=== PATIENT | female | born 2000 | race Caucasian/White ===

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

== ENCOUNTER → 2019-03-31 | Outpatient (CLI) | payer OTHER, BC ==
--- NOTE | 2019-03-31 12:14 | US ---
EXAMINATION TYPE: US pelvis complete transvag DATE OF EXAM: 03/31/2019 COMPARISON: NONE CLINICAL HISTORY: 18-year-old female R10.2 pelvic pain. TECHNIQUE: Transabdominal sonographic images of the pelvis were acquired. Transvaginal sonographic i mages were medically necessary to better assess the following anatomy: Uterus and ovaries Date of LMP: 03/09/2019 FINDINGS: EXAM MEASUREMENTS: Uterus: 6.3 x 2.9 x 3.4 cm Endometrial Stripe: 0.3 cm Right Ovary: 2.3 x 1.6 x 1.7 cm Left Ovary: 2.1 x 1.7 x 1.8 cm 1. Uterus: Anteverted wnl 2. Endometrium: wnl 3. Right Ovary: Follicular change, wnl 4. Left Ovary: Follicular change, wnl 5. Bilateral Adnexa: wnl 6. Posterior cul-de-sac: wnl IMPRESSION: Normal follicular change in the ovaries. Thin endometrial stripe at 3 mm. No pelvic free fluid.
== END | disposition home or self-care (01) ==
LOC: RADUSMAIN 10:00
PROVIDERS: ATTEND Obstetrics & Gynecology
DX: R10.2 Pelvic and perineal pain (principal)
CPT/HCPCS: 76830; 76856

== ENCOUNTER 2020-03-18 07:18 | Emergency (ER) | payer OTHER, BC ==
[2020-03-18 07:32] VITALS: BP 138/89; PULSE 83; RESP 16; TEMP 98.9
[2020-03-18] MEDS ORDERED: diphenhydrAMINE 50 MG/ML 1 ML VIAL IVP STA (07:36)
[2020-03-18] MEDS ORDERED: FAMOTIDINE 20 MG/2 ML VIAL IV STA (07:36)
[2020-03-18] MEDS ORDERED: methylPREDNISolone SOD SUCCI 125 MG/2 ML VIAL IV STA (07:36)
--- NOTE | 2020-03-18 07:47 | ED ---
Allergic Reaction HPI - General Chief complaint: Allergic Reaction Stated complaint: Allergic Reaction Time Seen by Provider: 03/18/20 07:33 Source: patient, RN notes reviewed Mode of arrival: ambulatory Limitations: no limitations - History of Present Illness Initial Comments: Patient is a 19-year-old female presents to emergency department complaining of ALLERGIC reaction. She noted that she just got her wisdom teeth out a little over a week ago. And noted that her sutures fell out the anterior aspect of her neck became red itchy and had a burning-like sensation. She did note that in the past she did have ankle surgery and had a similar reaction on her leg. She does have a follow-up with her radiator mechanic. She'll that she tried taking Jojo dryl last night to help sleep but it did not do much. She was in no apparent distress or pain, and had no other issues or complaints. She denied any chest pain shortness of breath difficulty swallowing difficulty talking nausea vomiting diarrhea constipation fever fatigue chills. - Related Data Previous Rx's Medication Instructions Recorded predniSONE 50 mg PO DAILY #5 tab 03/18/20 Allergies Allergy/AdvReac Type Severity Reaction Status Date / Time latex Allergy Rash/Hives Verified 03/18/20 07:32 Penicillins Allergy Rash/Hives Verified 03/18/20 07:32 Review of Systems ROS Statement: Those systems with pertinent positive or pertinent negative responses have been documented in the HPI. ROS Other: All systems not noted in ROS Statement are negative. Past Medical History Past Medical History: No Reported History History of Any Multi-Drug Resistant Organisms: None Reported Past Surgical History: Orthopedic Surgery Past Psychological History: No Psychological Hx Reported Smoking Status: Never smoker Past Alcohol Use History: None Reported Past Drug Use History: None Reported General Exam Limitations: no limitations General appearance: alert, in no apparent distress Head exam: Present: atraumatic, normocephalic, normal inspection Eye exam: Present: normal appearance, PERRL, EOMI. Absent: scleral icterus, conjunctival injection, periorbital swelling ENT exam: Present: normal exam, mucous membranes moist Neck exam: Present: normal inspection. Absent: tenderness, meningismus, lymphadenopathy Respiratory exam: Present: normal lung sounds bilaterally. Absent: respiratory distress, wheezes, rales, rhonchi, stridor Cardiovascular Exam: Present: regular rate, normal rhythm, normal heart sounds. Absent: systolic murmur, diastolic murmur, rubs, gallop, clicks GI/Abdominal exam: Present: soft, normal bowel sounds. Absent: distended, tenderness, guarding, rebound, rigid Extremities exam: Present: normal inspection, full ROM, normal capillary refill. Absent: tenderness, pedal edema, joint swelling, calf tenderness Neurological exam: Present: alert, oriented X3, CN II-XII intact Psychiatric exam: Present: normal affect, normal mood Skin exam: Present: warm, dry, intact, normal color, urticaria (Anterior aspect of the neck with ill-defined margins, blotchy, warm to the touch). Absent: rash Course Vital Signs 03/18/20 07:28 Temperature 98.9 F Pulse Rate 83 Respiratory 16 Rate Blood Pressure 138/89 O2 Sat by Pulse 100 Oximetry Medical Decision Making - Medical Decision Making 19 oh female complaining of ALLERGIC reaction status post wisdom teeth removal. Patient states similar reaction after ankle surgery Ordered Benadryl, methylprednisone, Pepcid. Case discussed with Dr. Mac, it was decided the patient to discharge home. Disposition Clinical Impression: Urticaria, Allergic reaction Disposition: HOME SELF-CARE Condition: Stable Instructions (If sedation given, give patient instructions): Urticaria (ED), General Allergic Reaction (ED) Additional Instructions: Please return to the Emergency Department if symptoms worsen or any other concerns. Take 1-2 tablets of Benadryl every 8 hours. Follow-up with radiator mechanic. Referral given for senior quality assurance analyst. Per patient's request Take steroids as prescribed. Is patient prescribed a controlled substance at d/c from ED?: No Referrals: None,Stated [Primary Care Provider] - 1-2 days Porsha Cee MD [STAFF PHYSICIAN] - 1-2 days Time of Disposition: 07:56
== END 2020-03-18 08:35 | disposition home or self-care (01) ==
LOC: EC 07:18
DX: L50.0 Allergic urticaria (principal); T78.49XA Other allergy, initial encounter; Z88.0 Allergy status to penicillin; Z91.040 Latex allergy status
CPT/HCPCS: 99283; 96374; 96375 ×2; J1200; J2930

== ENCOUNTER 2022-12-09 09:55 | Inpatient (IN) | payer BC ==
[2022-12-09] MEDS ORDERED: METHYLERGONOVINE 0.2 MG/ML 1 ML AMP IM PRN (10:50)
[2022-12-09] MEDS ORDERED: TRANEXAMIC 1,000 MG/100ML-NACL 1,000 MG in EMPTY BAG 1 BAG IV PRN (10:50)
[2022-12-09] MEDS ORDERED: TERBUTALINE 1 MG/ML VIAL SQ PRN (10:50)
[2022-12-09] MEDS ORDERED: miSOPROStoL 200 MCG TAB PO PRN (10:50)
[2022-12-09] MEDS ORDERED: LIDOCAINE 0.5% (PF) 5 MG/ML (50 ML SDV) SQ PRN (10:50)
[2022-12-09] MEDS ORDERED: CARBOPROST TROMETHAMINE 250 MCG/ML 1 ML AMP IM PRN (10:50)
[2022-12-09] MEDS ORDERED: OXYTOCIN 10 UNIT/ML 1 ML VIAL IM PRN (10:50)
[2022-12-09] MEDS ORDERED: OXYTOCIN 30 UNITS/500 ML NS 30 UNIT in SALINE 1 500ML.BAG IV SCH (11:00)
[2022-12-09 11:28] LABS: Basophils % (A) 0 %; Eosinophils # (A) 0.1 k/uL (0-0.7); Eosinophils % (A) 1 %; HCT 36.4 % (34.0-46.0); HGB 12.6 gm/dL (11.4-16.0); Lymphocytes # (A) 2.1 k/uL (1.0-4.8); Lymphocytes % (A) 23 %; MCH 29.2 pg (25.0-35.0); MCHC 34.6 g/dL (31.0-37.0); MCV 84.5 fL (80.0-100.0); Mean Platelet Volume 9.5; Monocytes # (A) 0.4 k/uL (0-1.0); Monocytes % (A) 5 %; Neutrophils # (A) 6.4 k/uL (1.3-7.7); Neutrophils % (A) 71 %; Platelet Count 213 k/uL (150-450); RBC 4.31 m/uL (3.80-5.40); WBC 9.1 k/uL (3.8-10.6)
[2022-12-09] MEDS: CLINDAMYCIN 900 MG in DEXTROSE 5% IN WATER 50 ML IVPB SCH ×4 (11:59→20:00)
[2022-12-09] MEDS: LACTATED RINGERS 1,000 ML IV SCH ×2 (11:59→19:09)
--- NOTE | 2022-12-09 17:49 | P.HPOB ---
History of Present Illness H&P Date: 12/09/22 Chief Complaint: SROM 22 year old presents at 39 weeks 4 days with spontaneous rupture of membranes at 8 am today. She came to the hospital and was found to be 2/80/-2 an d not meera. Pt is GBS +. She will be admitted for IV antibiotics and pitocin augmentation with expected vaginal delivery. Review of Systems All systems: negative Constitutional: Denies chills, Denies fever Eyes: denies blurred vision, denies pain Ears, nose, mouth and throat: Denies headache, Denies sore throat Cardiovascular: Denies chest pain, Denies shortness of breath Respiratory: Denies cough Gastrointestinal: Denies abdominal pain, Denies diarrhea, Denies nausea, Denies vomiting Genitourinary: Denies dysuria, Denies hematuria Musculoskeletal: Denies myalgias Integumentary: Denies pruritus, Denies rash Neurological: Denies numbness, Denies weakness Psychiatric: Denies anxiety, Denies depression Endocrine: Denies fatigue, Denies weight change Past Medical History Past Medical History: No Reported History History of Any Multi-Drug Resistant Organisms: None Reported Past Surgical History: Orthopedic Surgery Additional Past Surgical History / Comment(s): LEFT ANKLE SURGERY Past Psychological History: No Psychological Hx Reported Smoking Status: Never smoker Past Alcohol Use History: None Reported Past Drug Use History: None Reported - Past Family History Father History Unknown: Yes Additional Family Medical History / Comment(s): DAD HAS HYPERCARDIOMYATHIA Medications and Allergies Home Medications Medication Instructions Recorded Confirmed Type Ferrous Sulfate [Iron] 325 mg PO DAILY 12/09/22 12/09/22 History Vit No.179/Iron/Folic 1 each PO DAILY 12/09/22 12/09/22 History [ Tablet] Allergies Allergy/AdvReac Type Severity Reaction Status Date / Time latex Allergy Rash/Hives Verified 12/09/22 10:21 Penicillins Allergy Rash/Hives Verified 12/09/22 10:21 Exam Osteopathic Statement: *. No significant issues noted on an osteopathic structural exam other than those noted in the History and Physical/Consult. Vital Signs Temp Pulse Resp BP Pulse Ox 12/09/22 11:40 98.6 F 86 16 134/83 98 12/09/22 11:31 98.6 F 86 16 134/83 98 12/09/22 11:22 98.6 F 86 16 134/83 98 Intake and Output 12/09/22 12/09/22 12/09/22 06:59 14:59 22:59 Other: # Voids 1 Weight 74.843 kg HEart: RRR Lung: CTAB Abdomen: soft, nontender Extremeties: neg darron's Results Result Diagrams: 12/09/22 11:15 Assessment and Plan (1) GBS carrier Current Visit: Yes Status: Acute Code(s): Z22.330 - CARRIER OF GROUP B STREPTOCOCCUS SNOMED Code(s): 7171040500984 (2) Spontaneous rupture of amniotic membranes Current Visit: Yes Status: Acute Code(s): [id number] - SNOMED Code(s): 445960578 (3) 39 weeks gestation of Current Visit: Yes Status: Acute Code(s): Z3A.39 - 39 WEEKS GESTATION OF SNOMED Code(s): 37521057 Plan: 1. admit to [facility] 2. IV antibiotics for GBS PPX 3. pitocin augmentation 4. anticipate normal vaginal delivery
[2022-12-09] MEDS ORDERED: ROPIVACAINE 5 MG/ML 30 ML VIAL ONE (19:51)
[2022-12-09] MEDS ORDERED: SODIUM CHLORIDE 0.9% 250 ML BAG ONE (19:51)
[2022-12-09] MEDS ORDERED: fentaNYL (PF) 50 MCG/ML 5 ML AMP ONE (19:51)
[2022-12-10] MEDS: LACTATED RINGERS 1,000 ML IV SCH ×3 (03:00→18:25)
[2022-12-10] MEDS: CLINDAMYCIN 900 MG in DEXTROSE 5% IN WATER 50 ML IVPB SCH ×2 (04:00)
[2022-12-10] MEDS ORDERED: CITRIC ACID-SODIUM CITRATE 15 ML CUP PO ONE (04:09)
[2022-12-10] MEDS ORDERED: GENTAMICIN 300 MG in SODIUM CHLORIDE 0.9% 100 ML IVPB ONE (04:30)
[2022-12-10] MEDS ORDERED: SIMETHICONE 80 MG CHEWABLE PO PRN (05:20)
[2022-12-10] MEDS ORDERED: ZOLPIDEM 5 MG TAB PO PRN (05:20)
[2022-12-10] MEDS ORDERED: diphenhydrAMINE 50 MG/ML 1 ML VIAL IVP PRN ×2 (05:20)
[2022-12-10] MEDS ORDERED: NALOXONE 0.4 MG/ML 1 ML VIAL IV PRN (05:20)
[2022-12-10] MEDS ORDERED: ONDANSETRON 4 MG/2 ML VIAL IVP PRN (05:20)
[2022-12-10] MEDS ORDERED: diphenhydrAMINE 25 MG CAP PO PRN (05:20)
[2022-12-10] MEDS ORDERED: diphenhydrAMINE 50 MG CAP PO PRN (05:20)
[2022-12-10] MEDS ORDERED: METOCLOPRAMIDE 5 MG/ML 2 ML VIAL IVP PRN (05:20)
[2022-12-10] MEDS ORDERED: LANOLIN CREAM 5 GM TUBE TOPICAL PRN (05:20)
--- NOTE | 2022-12-10 05:20 | P.OP ---
Date of Procedure: 12/10/22 Preoperative Diagnosis: 1. at 39 weeks 5 days 2. SROM 3. latent phase arrest-pitocin augmentation after SROM and cervical dilation <6 for over 18 hours after membrane rupture Postoperative Diagnosis: same plus meconium stained fluid Procedure(s) Performed: Primary low transverse Anesthesia: epidural Surgeon: Sugey Salazar Dope Dry House Operator #1: Mary Zapata Estimated Blood Loss (ml): 1,500 IV fluids (ml): 1,000 Urine output (ml): 200 Pathology: none sent Condition: stable Disposition: floor Indications for Procedure: 22-year-old presented at 39 weeks and 4 days with spontaneous rupture of membranes. She presented soon after that and was 2 cm dilated as Pitocin augmentation was started. Antibiotics were also started for GBS prophylaxis. When she was uncomfortable she did get an epidural. Her cervix became about 5 cm dilated and did not progress after this for over 10 hours. He performed the [facility]'s [facility] and discussed options with the patient. I advised section to expedite delivery and the patient agreed to the plan. All risks, benefits and alternatives were discussed with the patient and her family. Operative Findings: Viable male, Apgars at 1 minute was 4, 5 minutes was 8, 10 minutes was 9. Weight 7 lbs. 13 oz. normal uterus, tubes, ovaries. Description of Procedure: Patient was taken to the operating room where spinal anesthesia was found be adequate. She was prepped and draped in normal sterile fashion in dorsal supine position with a leftward tilt. Pfannenstiel skin incision was made the scalpel and carried through to the underlying layer of fascia with the scalpel. Fascia was incised in midline and carried bilaterally with the Upton scissors. The superior aspect of the fascial incision was grasped with Kwaku clamps elevated and the underlying rectus muscles dissected off with the Upton's. Attention was then turned to inferior aspect of same incision which in a similar fashion was grasped tented up and the underlying rectus muscles dissected off with the Upton's. The rectus muscles were the midline and the peritoneum was identified tented up and entered sharply with the scalpel. The incision was extended superiorly and inferiorly with good visualization of the bladder. The bladder blade was inserted and the vesicouterine peritoneum was incised the Metzenbaums then carried bilaterally and bladder flap created digitally. A low transverse incision was then made on the uterus with the scalpel. This was carried bilaterally and digital manner. Infant's head delivered atraumatically, nose and mouth bulb suctioned, cord clamped and cut, handed off to waiting nurses. Apgars 4 at one minute, 8 at 5 minutes and 9 at 10 minutes, weight 7 lbs. 13 oz. Placenta delivered manually, intact with three-vessel cord. The uterus is exteriorized and cleared of all clots and debris. There was some uterine atony noted so extra Pitocin was given through the IV. The uterine incision was closed with 0 Vicryl in a running locked fashion. Second layer of the same sutures used in imbricating fashion to obtain excellent hemostasis. Bladder flap was then reapproximated using 2-0 Vicryl in a running fashion. Both ovaries and tubes appeared normal. The uterus was placed back into the abdomen. The peritoneum was reapproximated using 2-0 Vicryl in a running fashion. The muscles were reapproximated using 2-0 Vicryl in interrupted fashion. The fascia was reapproximated using 0 Vicryl in a running fashion. The subcutaneous tissues closed with 3-0 Vicryl running fashion. The skin was closed ron. Patient tolerated the procedure well, sponge and instrument counts were correct times 2 and she was taken to the recovery room in stable condition.
[2022-12-10] MEDS ORDERED: LACTATED RINGERS 1,000 ML IV SCH (05:30)
[2022-12-10] MEDS ORDERED: OXYTOCIN 30 UNITS/500 ML NS 30 UNIT in SALINE 1 500ML.BAG IV SCH (05:30)
[2022-12-10] MEDS ORDERED: ONDANSETRON 4 MG/2 ML VIAL ONE (09:28)
[2022-12-10] MEDS ORDERED: DEXAMETHASONE SOD PHOSPHATE 4 MG/ML 1 ML VIAL ONE (09:28)
[2022-12-10] MEDS ORDERED: OXYTOCIN 30 UNITS/500 ML NS BAG IV ONE (09:28)
[2022-12-10] MEDS ORDERED: KETOROLAC 15 MG/ML 1 ML VIAL ONE (09:28)
[2022-12-10] MEDS ORDERED: MORPHINE SULFATE (PF) 0.3 MG/0.3 ML SYR ONE (09:28)
[2022-12-10] MEDS ORDERED: fentaNYL (PF) 50 MCG/ML 2 ML AMP ONE (09:28)
[2022-12-10] MEDS: SENNOSIDES-DOCUSATE SODIUM 1 EACH TAB PO SCH ×2 (10:32→19:49)
[2022-12-10] MEDS: ACETAMINOPHEN TAB 500 MG TAB PO SCH ×4 (10:33→22:57)
[2022-12-10] MEDS: KETOROLAC 15 MG/ML 1 ML VIAL IVP SCH ×2 (11:29→18:25)
[2022-12-10] MEDS: IBUPROFEN 600 MG TAB PO SCH ×3 (11:30→20:15)
[2022-12-11] MEDS: IBUPROFEN 600 MG TAB PO SCH ×4 (01:45→19:36)
[2022-12-11] MEDS: ACETAMINOPHEN TAB 500 MG TAB PO SCH ×4 (05:26→23:59)
[2022-12-11 07:35] LABS: Basophils % (A) 0 %; Eosinophils # (A) 0.2 k/uL (0-0.7); Eosinophils % (A) 1 %; HCT 22.8 % (34.0-46.0); Lymphocytes # (A) 2.9 k/uL (1.0-4.8); Lymphocytes % (A) 20 %; MCH 29.3 pg (25.0-35.0); MCHC 34.1 g/dL (31.0-37.0); MCV 85.8 fL (80.0-100.0); Mean Platelet Volume 9.8; Monocytes # (A) 0.6 k/uL (0-1.0); Monocytes % (A) 4 %; Neutrophils # (A) 10.7 k/uL (1.3-7.7); Neutrophils % (A) 73 %; Platelet Count 190 k/uL (150-450); RBC 2.65 m/uL (3.80-5.40); RDW 15.4 % (11.5-15.5); WBC 14.7 k/uL (3.8-10.6)
[2022-12-11 08:00] LABS: HGB 7.8 gm/dL (11.4-16.0)
[2022-12-11] MEDS: SENNOSIDES-DOCUSATE SODIUM 1 EACH TAB PO SCH ×2 (08:03→19:35)
--- NOTE | 2022-12-11 08:08 | P.PN ---
Progress Note - Text Progress Note Date: 12/11/22 Patient seen sitting upright in bed. POD #1 C/S with IRLANDA/duramorph for post-op pain control. Patient denies pain VAS 0/10 sitting and with ambulation. Complains of pruritis that has diminished over night. Denies back pain, LE parethesias, Nausea and headache. Happy with her anesthesia care. Will follow up as indicated.
--- NOTE | 2022-12-11 08:39 | P.PNOBGPC ---
Subjective - Subjective Principal diagnosis: Status post primary section postoperative day #1 Interval history: Patient is doing well. She is ambulating without difficulty. She is passing flatus. She denies any bowel movement yet. She is urinating without difficulty. Patient reports: Reports appetite normal, Reports voiding normally, Reports pain well controlled, Reports ambulating normally, Denies dizzy ambulation : doing well Objective - Vital Signs Latest vital signs: Vital Signs Temp Pulse Resp BP Pulse Ox 12/11/22 08:00 97.9 F 71 20 144/85 100 12/10/22 23:28 98.1 F 83 14 131/83 98 12/10/22 20:10 98.7 F 91 18 136/77 99 12/10/22 15:49 98.2 F 84 16 134/80 99 12/10/22 12:00 98.9 F 76 16 122/70 99 Intake and Output 12/10/22 12/11/22 12/11/22 22:59 06:59 14:59 Intake Total 360 Output Total 400 Balance -400 360 Intake: Oral 360 Output: Urine 400 Other: # Voids 1 2 1 - Exam Extremities: Present: normal. Absent: tenderness, edema Abdomen: Present: normal appearance, soft (Positive bowel sounds 4). Absent: distention, tenderness Incision: Present: normal, dry, intact. Absent: erythematous Uterus: Present: normal, firm. Absent: tenderness - Labs Labs: Abnormal Lab Results - Last 24 Hours (Table) 12/11/22 Range/Units 07:05 WBC 14.7 H (3.8-10.6) k/uL RBC 2.65 L (3.80-5.40) m/uL Hgb 7.8 L D (11.4-16.0) gm/dL Hct 22.8 L (34.0-46.0) % Neutrophils # 10.7 H (1.3-7.7) k/uL Assessment and Plan Assessment: Status post primary low transverse section postoperative day #1 Acute blood loss anemia-relatively asymptomatic Plan: We'll continue with postoperative care today. Will repeat CBC in the morning. Pediatrics has asked me not to do the circumcision yet today due to possible infection for baby.
[2022-12-12] MEDS: IBUPROFEN 600 MG TAB PO SCH ×5 (02:13→23:03)
[2022-12-12] MEDS: ACETAMINOPHEN TAB 500 MG TAB PO SCH ×4 (05:10→20:13)
--- NOTE | 2022-12-12 06:32 | P.PNOBGPC ---
Subjective - Subjective Patient reports: Reports appetite normal, Reports voiding normally, Reports pain well controlled, Reports ambulating normally : doing well Objective - Vital Signs Latest vital signs: Vital Signs Temp Pulse Resp BP Pulse Ox 12/12/22 00:00 98.3 F 74 18 135/80 99 12/11/22 15:36 98.4 F 73 20 135/86 12/11/22 08:00 97.9 F 71 20 144/85 100 Intake and Output 12/11/22 12/11/22 12/12/22 14:59 22:59 06:59 Intake Total 360 360 540 Balance 360 360 540 Intake: Oral 360 360 540 Other: # Voids 1 2 1 # Bowel Movements 1 - Exam Lungs: bilateral: normal Chest: Normal S1, Normal S2 Extremities: Present: normal Abdomen: Present: normal appearance, soft. Absent: distention, tenderness Incision: Present: normal, dry, intact Uterus: Present: normal, firm - Labs Labs: Abnormal Lab Results - Last 24 Hours (Table) 12/11/22 Range/Units 07:05 WBC 14.7 H (3.8-10.6) k/uL RBC 2.65 L (3.80-5.40) m/uL Hgb 7.8 L D (11.4-16.0) gm/dL Hct 22.8 L (34.0-46.0) % Neutrophils # 10.7 H (1.3-7.7) k/uL Assessment and Plan Assessment: Post operative day #2. Patient is resting without complaints. CBC yesterday showed a significant drop her hemoglobin from surgical loss however the patient is feeling well. Plan today is to continue routine postoperative care, repeat CBC, and began iron therapy. Most likely will discharge home tomorrow (1) Delivery by section Current Visit: Yes Status: Acute Code(s): [id number] - SNOMED Code(s): 253052112
[2022-12-12 07:24] LABS: Basophils % (A) 0 %; Eosinophils # (A) 0.2 k/uL (0-0.7); Eosinophils % (A) 2 %; HCT 21.3 % (34.0-46.0); HGB 7.1 gm/dL (11.4-16.0); Lymphocytes # (A) 1.9 k/uL (1.0-4.8); Lymphocytes % (A) 21 %; MCH 28.7 pg (25.0-35.0); MCHC 33.2 g/dL (31.0-37.0); MCV 86.3 fL (80.0-100.0); Mean Platelet Volume 11.1; Monocytes # (A) 0.5 k/uL (0-1.0); Monocytes % (A) 5 %; Neutrophils # (A) 6.2 k/uL (1.3-7.7); Neutrophils % (A) 70 %; Platelet Count 178 k/uL (150-450); RBC 2.46 m/uL (3.80-5.40); RDW 15.7 % (11.5-15.5); WBC 8.9 k/uL (3.8-10.6)
[2022-12-12] MEDS: SENNOSIDES-DOCUSATE SODIUM 1 EACH TAB PO SCH ×2 (07:54→20:12)
[2022-12-12] MEDS: FERROUS SULFATE 325 MG TAB PO SCH ×2 (07:55→17:13)
[2022-12-13] MEDS: ACETAMINOPHEN TAB 500 MG TAB PO SCH (03:29)
[2022-12-13] MEDS: IBUPROFEN 600 MG TAB PO SCH (05:18)
--- NOTE | 2022-12-13 06:19 | P.PNOBGPC ---
Subjective - Subjective Patient reports: Reports appetite normal, Reports voiding normally, Reports pain well controlled, Reports ambulating normally : doing well Objective - Vital Signs Latest vital signs: Vital Signs Temp Pulse Resp BP BP Pulse Ox 12/13/22 00:00 98.4 F 64 15 138/86 12/12/22 16:00 98.0 F 72 18 144/82 99 12/12/22 14:51 97.3 F L 74 16 154/90 98 12/12/22 13:30 155/83 12/12/22 13:28 157/93 12/12/22 13:07 98.2 F 72 16 147/88 99 12/12/22 08:00 98.3 F 77 18 143/85 99 Intake and Output 12/12/22 12/12/22 12/13/22 14:59 22:59 06:59 Intake Total 480 Balance 480 Intake: Oral 480 Other: # Voids 1 2 - Exam Lungs: bilateral: normal Chest: Normal S1, Normal S2 Extremities: Present: normal Abdomen: Present: normal appearance, soft. Absent: distention, tenderness Incision: Present: normal, dry, intact Uterus: Present: normal, firm - Labs Labs: Abnormal Lab Results - Last 24 Hours (Table) 12/12/22 Range/Units 07:12 RBC 2.46 L (3.80-5.40) m/uL Hgb 7.1 L (11.4-16.0) gm/dL Hct 21.3 L (34.0-46.0) % RDW 15.7 H (11.5-15.5) % Assessment and Plan Assessment: Postoperative day #3. Patient is resting without complaints and wishes to go home. Repeat CBC yesterday showed hemoglobin 7.1. Patient is asymptomatic for the most part and is taking iron supplements. Vital signs are stable she's afebrile. Uterus is firm nontender and her incision is intact and dry. Impression this is a normal post operative course with some secondary anemia the patient is tolerating. Discharge home later this morning. (1) Delivery by section Current Visit: Yes Status: Acute Code(s): [id number] - SNOMED Code(s): 104747281
--- NOTE | 2022-12-13 06:25 | P.DS ---
Providers Date of admission: 12/09/22 10:42 Expected date of discharge: 12/13/22 Attending physician: Wesley Snyder Primary care physician: Stated None - Discharge Diagnosis(es) (1) Delivery by section Current Visit: Yes Status: Acute Hospital Course: Please see dictated H&P and delivery note per Dr. Salazar on this patient's admission and delivery. In brief summary this is a pleasant 22-year-old 1 para 0 female 39-5/7 weeks admitted to labor and delivery with spontaneous rupture membranes. Patient goes on to have a primary low transverse section for failure to progress. Postoperative patient does have some anemia secondary to operative blood loss is started on iron therapy. Postoperative 3 patient is doing well was felt be stable for discharge home follow up with me in 1 week. Procedures: Primary low transverse section Patient Condition at Discharge: Good Plan - Discharge Summary New Discharge Prescriptions: New Ibuprofen [Motrin] 600 mg PO Q6H #40 tab oxyCODONE HCL [OxyIR] 5 mg PO Q4HR PRN #18 tab PRN Reason: Pain Scale 4 - 6 Ferrous Sulfate [Iron (65 MG Elemental)] 325 mg PO BID-W/MEALS #60 tab No Action Vit No.179/Iron/Folic [ Tablet] 1 each PO DAILY Ferrous Sulfate [Iron] 325 mg PO DAILY Discharge Medication List Ferrous Sulfate [Iron] 325 mg PO DAILY 12/09/22 [History] Vit No.179/Iron/Folic [ Tablet] 1 each PO DAILY 12/09/22 [History] Ferrous Sulfate [Iron (65 MG Elemental)] 325 mg PO BID-W/MEALS #60 tab 12/13/22 [Rx] Ibuprofen [Motrin] 600 mg PO Q6H #40 tab 12/13/22 [Rx] oxyCODONE HCL [OxyIR] 5 mg PO Q4HR PRN #18 tab 12/13/22 [Rx] Follow up Appointment(s)/Referral(s): Wesley Snyder MD [STAFF PHYSICIAN] - 1 Week (PO 12/20/2022 @ 9:00 am PP 01/21/2023 @10:30 am) Patient Instructions/Handouts: (DC), Iron Rich Diet (DC), Anemia (DC) Activity/Diet/Wound Care/Special Instructions: No heavy lifting or strenuous activity for 6 weeks. No intercourse or anything per vagina for 6 weeks. Please call if any fever, chills, excessive vaginal bleeding, and/or abdominal pain. Discharge Disposition: HOME SELF-CARE
[2022-12-13] MEDS: FERROUS SULFATE 325 MG TAB PO SCH (07:55)
[2022-12-13] MEDS: SENNOSIDES-DOCUSATE SODIUM 1 EACH TAB PO SCH (07:55)
[2022-12-13 08:50] VITALS: BP 133/80; PULSE 68; RESP 16; TEMP 98
== END 2022-12-13 10:30 | disposition home or self-care (01) | DRG 787 ==
LOC: FBPOP 09:55 → 4FBP 10:42
PROVIDERS: ADMIT Obstetrics & Gynecology; ATTEND Obstetrics & Gynecology
PROC: 10D00Z1 Extraction of Products of Conception, Low, Open Approach (ICD-10-PCS; principal; 2022-12-09)
DX: O42.92 Full-term premature rupture of membranes, unspecified as to length of time between rupture and onset of labor (principal); D62 Acute posthemorrhagic anemia; O77.0 Labor and delivery complicated by meconium in amniotic fluid; O99.824 Streptococcus B carrier state complicating childbirth; Z3A.39 39 weeks gestation of pregnancy; Z37.0 Single live birth; O90.81 Anemia of the puerperium; L29.9 Pruritus, unspecified; Z88.0 Allergy status to penicillin; Z91.040 Latex allergy status
CPT/HCPCS: 59025; 84112; 85025; 86850; 86900; 86901; 99213

== ENCOUNTER 2024-06-19 20:28 | Emergency (ER) | payer BC ==
[2024-06-19 20:32] VITALS: RESP 18
--- NOTE | 2024-06-19 20:52 | ED ---
General Adult HPI - General Chief complaint: Vaginal Bleeding Stated complaint: cramping and bleeding, Time Seen by Provider: 06/19/24 20:33 Source: patient, RN notes reviewed Mode of arrival: ambulatory Limitations: no limitations - History of Present Illness Initial comments: This is a 24-year-old female, [id number], presented to the emergency department approximately 7 weeks gestation for complaint of vaginal bleeding and lower abdominal cramping. Patient states that this afternoon she began to experience vaginal bleeding that is relatively persistent in addition to lower abdominal cramping. She denies passage of clots, urinary symptoms. Patient's last menstrual cycle was on May 01. Patient states she attempted to make appointment with her OB however her first appointment is not till 2 weeks. - Related Data Home Medications Medication Instructions Recorded Confirmed Ferrous Sulfate [Iron] 325 mg PO DAILY 12/09/22 12/09/22 Vit No.179/Iron/Folic 1 each PO DAILY 12/09/22 12/09/22 [ Tablet] Previous Rx's Medication Instructions Recorded Ferrous Sulfate [Iron (65 MG 325 mg PO BID-W/MEALS #60 tab 12/13/22 Elemental)] Ibuprofen [Motrin] 600 mg PO Q6H #40 tab 12/13/22 oxyCODONE HCL [OxyIR] 5 mg PO Q4HR PRN #18 tab 12/13/22 Allergies Allergy/AdvReac Type Severity Reaction Status Date / Time latex Allergy Rash/Hives Verified 06/19/24 20:31 Penicillins Allergy Rash/Hives Verified 06/19/24 20:31 Review of Systems ROS Statement: Those systems with pertinent positive or pertinent negative responses have been documented in the HPI. ROS Other: All systems not noted in ROS Statement are negative. Past Medical History Past Medical History: No Reported History History of Any Multi-Drug Resistant Organisms: None Reported Past Surgical History: Orthopedic Surgery Additional Past Surgical History / Comment(s): LEFT ANKLE SURGERY Past Psychological History: No Psychological Hx Reported Smoking Status: Never smoker Past Alcohol Use History: None Reported Past Drug Use History: None Reported - Past Family History Father History Unknown: Yes Additional Family Medical History / Comment(s): DAD HAS HYPERCARDIOMYATHIA General Exam Limitations: no limitations General appearance: alert, in no apparent distress Neck exam: Present: normal inspection. Absent: tenderness, meningismus, lymphadenopathy Respiratory exam: Present: normal lung sounds bilaterally. Absent: respiratory distress, wheezes, rales, rhonchi, stridor Cardiovascular Exam: Present: regular rate, normal rhythm, normal heart sounds. Absent: systolic murmur, diastolic murmur, rubs, gallop, clicks GI/Abdominal exam: Present: soft, normal bowel sounds. Absent: distended, tenderness, guarding, rebound, rigid Extremities exam: Present: normal inspection, full ROM, normal capillary refill. Absent: tenderness, pedal edema, joint swelling, calf tenderness Back exam: Present: normal inspection. Absent: CVA tenderness (R), CVA tenderness (L) Course Vital Signs 06/19/24 06/20/24 20:30 00:43 Temperature 99 F 99.1 F Pulse Rate 95 87 Respiratory 18 18 Rate Blood Pressure 129/87 127/86 O2 Sat by Pulse 100 99 Oximetry Medical Decision Making - Medical Decision Making Was pt. sent in by a medical professional or institution (, PA, HIDES INSPECTOR, urgent care, hospital, or [facility]...) When possible be specific @ -No Did you speak to anyone other than the patient for history (EMS, parent, family, police, friend...)? What history was obtained from this source @ -No Did you review nursing and triage notes (agree or disagree)? Why? @ -I reviewed and agree with nursing and triage notes Were old charts reviewed (outside hosp., previous admission, EMS record, old EKG, old radiological studies, urgent care reports/EKG's, [facility] records)? Report findings @ -No old charts were reviewed Differential Diagnosis (chest pain, altered mental status, abdominal pain women, abdominal pain men, vaginal bleeding, weakness, fever, dyspnea, syncope, headache, dizziness, GI bleed, back pain, seizure, CVA, palpatations, mental health, musculoskeletal)? @ -Differential Vaginal Bleeding: Spontaneous , threatened , molar , ectopic , bloody show, incompetent cervix, abruptioplacenta, placenta previa, uterine rupture, dysfunctional uterine bleeding, hemorrhage, uterine fibroids , this is not meant to be an all-inclusive list. EKG interpreted by me (3pts min.). @ -None X-rays interpreted by me (1pt min.). @ -None done CT interpreted by me (1pt min.). @ -None done U/S interpreted by me (1pt. min.). @ - ultrasound completed with the potential for a single intrauterine gestational sac estimated by 5 weeks and 6 days with no pole or yolk sac identified at this time with no cardiac activity, possibility of blighted ovum What testing was considered but not performed or refused? (CT, X-rays, U/S, labs)? Why? @ -None What meds were considered but not given or refused? Why? @ -None Did you discuss the management of the patient with other professionals (professionals i.e. , PA, HIDES INSPECTOR, lab, RT, psych nurse, social economist, ergonomics consultant, teacher, event security officer, special education case manager)? Give summary @ -No Was smoking cessation discussed for >3mins.? @ -No Was critical care preformed (if so, how long)? @ -No Were there social determinants of health that impacted care today? How? (Homelessness, low income, unemployed, alcoholism, drug addiction, transport ation, low edu. Level, literacy, decrease access to med. care, long-term, rehab)? @ -No Was there de-escalation of care discussed even if they declined (Discuss DNR or withdrawal of care, Hospice)? DNR status @ -No What co-morbidities impacted this encounter? (DM, HTN, Smoking, COPD, CAD, Cancer, CVA, ARF, Chemo, Hep., AIDS, mental health diagnosis, sleep apnea, morbid obesity)? @ -None Was patient admitted / discharged? Hospital course, mention meds given and route, prescriptions, significant lab abnormalities, going to OR and other pertinent info. @ -discharged. 24-year-old female present emergency department at approximately 7 weeks gestation with concerns of vaginal bleeding. Overall patient is well- appearing in no signs of acute distress. Abdominal examination is unremarkable. Patient's O type is O+. hCG level of 8347.9. Ultrasound reveals a potential for a single intrauterine gestational sac with no notable pole or yolk sac with no cardiac activity. hCG level over 8000. Patient is provided with outpatient prescription to repeat hCG level testing in 48 hours and recommend repeat ultrasound testing in 1 week. Return parameters discussed. Case discussed with Dr. Marquez Undiagnosed new problem with uncertain prognosis? @ -No Drug Therapy requiring intensive monitoring for toxicity (Heparin, Nitro, Insulin, Cardizem)? @ -No Were any procedures done? @ -No Diagnosis/symptom? @ -threatened Acute, or Chronic, or Acute on Chronic? @ -acute Uncomplicated (without systemic symptoms) or Complicated (systemic symptoms)? @ -uncomplicated Side effects of treatment? @ -No Exacerbation, Progression, or Severe Exacerbation? @ -No Poses a threat to life or bodily function? How? (Chest pain, USA, CT, pneumonia, PE, COPD, DKA, ARF, appy, cholecystitis, CVA, Diverticulitis, Homicidal, Suicidal, threat to staff... and all critical care pts) @ -No - Lab Data Result diagrams: 06/19/24 20:59 06/20/24 00:00 Lab Results 06/19/24 06/19/24 06/19/24 Range/Units 20:59 20:59 21:01 WBC 3.26 L (4.50-10.00) 10*3/uL RBC 4.39 (4.10-5.20) 10*6/uL Hgb 11.3 L (12.0-15.0) g/dL Hct 35.0 L (37.2-46.3) % MCV 79.7 L (80.0-97.0) fL MCH 25.7 L (27.0-32.0) pg MCHC 32.3 (32.0-37.0) g/dL Plt Count 221 (140-440) 10*3/uL MPV 10.5 (9.5-12.2) fL Immature Gran % (Auto) 0.3 % Neutrophils % 57.7 % Lymphocytes % 24.2 % Monocytes % 16.9 % Eosinophils % 0.6 % Basophils % 0.3 % Immature Gran # 0.01 (0.00-0.04) 10*3/uL Neutrophils # 1.88 (1.80-7.70) 10*3/uL Lymphocytes # 0.79 L (0.90-5.00) 10*3/uL Monocytes # 0.55 (0.20-1.00) 10*3/uL Eosinophils # 0.02 L (0.04-0.35) 10*3/uL Basophils # 0.01 (0.00-0.10) 10*3/uL Sodium 152 H (137-145) mmol/L Potassium 3.1 L (3.5-5.1) mmol/L Chloride 101 (98-107) mmol/L Carbon Dioxide 23 (22-30) mmol/L Anion Gap 28 mmol/L BUN 10 (7-17) mg/dL Creatinine 0.68 (0.52-1.04) mg/dL Est GFR (CKD-EPI)AfAm >90 (>60 ml/min/1.73 sqM) Est GFR (CKD-EPI)NonAf >90 (>60 ml/min/1.73 sqM) Glucose 103 H (74-99) mg/dL Calcium 9.5 (8.4-10.2) mg/dL Total Bilirubin 0.2 (0.2-1.3) mg/dL AST 36 (14-36) U/L ALT 43 H (4-34) U/L Alkaline Phosphatase 47 (38-126) U/L Total Protein 7.3 (6.3-8.2) g/dL Albumin 4.5 (3.5-5.0) g/dL HCG, Quant 8347.9 mIU/mL Urine Color Colorless Urine Appearance Clear (Clear) Urine pH 5.5 (5.0-8.0) Ur Specific [place] 1.006 (1.001-1.035) Urine Protein Negative (Negative) Urine Glucose (UA) Negative (Negative) Urine Ketones Negative (Negative) Urine Blood Large H (Negative) Urine Nitrite Negative (Negative) Urine Bilirubin Negative (Negative) Urine Urobilinogen <2.0 (<2.0) mg/dL Ur Leukocyte Esterase Negative (Negative) Urine RBC 2 (0-5) /hpf Urine WBC 1 (0-5) /hpf Ur Squamous Epith Cells 1 (0-4) /hpf Urine Bacteria Rare H (None) /hpf Urine Mucus Rare H (None) /hpf Blood Type Blood Type Recheck Bld Type Recheck Status Antibody Screen Spec Expiration Date 06/19/24 06/20/24 Range/Units 21:34 00:00 WBC (4.50-10.00) 10*3/uL RBC (4.10-5.20) 10*6/uL Hgb (12.0-15.0) g/dL Hct (37.2-46.3) % MCV (80.0-97.0) fL MCH (27.0-32.0) pg MCHC (32.0-37.0) g/dL Plt Count (140-440) 10*3/uL MPV (9.5-12.2) fL Immature Gran % (Auto) % Neutrophils % % Lymphocytes % % Monocytes % % Eosinophils % % Basophils % % Immature Gran # (0.00-0.04) 10*3/uL Neutrophils # (1.80-7.70) 10*3/uL Lymphocytes # (0.90-5.00) 10*3/uL Monocytes # (0.20-1.00) 10*3/uL Eosinophils # (0.04-0.35) 10*3/uL Basophils # (0.00-0.10) 10*3/uL Sodium 137 (137-145) mmol/L Potassium 2.8 L (3.5-5.1) mmol/L Chloride 108 H (98-107) mmol/L Carbon Dioxide 22 (22-30) mmol/L Anion Gap 7 mmol/L BUN 9 (7-17) mg/dL Creatinine 0.59 (0.52-1.04) mg/dL Est GFR (CKD-EPI)AfAm >90 (>60 ml/min/1.73 sqM) Est GFR (CKD-EPI)NonAf >90 (>60 ml/min/1.73 sqM) Glucose 82 (74-99) mg/dL Calcium 7.6 L (8.4-10.2) mg/dL Total Bilirubin (0.2-1.3) mg/dL AST (14-36) U/L ALT (4-34) U/L Alkaline Phosphatase (38-126) U/L Total Protein (6.3-8.2) g/dL Albumin (3.5-5.0) g/dL HCG, Quant mIU/mL Urine Color Urine Appearance (Clear) Urine pH (5.0-8.0) Ur Specific [place] (1.001-1.035) Urine Protein (Negative) Urine Glucose (UA) (Negative) Urine Ketones (Negative) Urine Blood (Negative) Urine Nitrite (Negative) Urine Bilirubin (Negative) Urine Urobilinogen (<2.0) mg/dL Ur Leukocyte Esterase (Negative) Urine RBC (0-5) /hpf Urine WBC (0-5) /hpf Ur Squamous Epith Cells (0-4) /hpf Urine Bacteria (None) /hpf Urine Mucus (None) /hpf Blood Type O Positive Blood Type Recheck O Pos Bld Type Recheck Status No Antibody Screen NEGATIVE Spec Expiration Date 06/22/20242333 Disposition Clinical Impression: Threatened miscarriage Disposition: HOME SELF-CARE Condition: Stable Instructions (If sedation given, give patient instructions): Threatened Miscarriage (ED) Additional Instructions: Please return to the Emergency Department if symptoms worsen or any other concer ns. As directed, is recommend that you repeat hCG testing in 48 hours and repeat ultrasound testing in 1 week. Is patient prescribed a controlled substance at d/c from ED?: No Referrals: Scott Combs MD [Primary Care Provider] - 1-2 days Time of Disposition: 00:32
[2024-06-19 21:09] LABS: Basophils # (A) 0.01 10*3/uL (0.00-0.10); Basophils % (A) 0.3 %; Eosinophils # (A) 0.02 10*3/uL (0.04-0.35); Eosinophils % (A) 0.6 %; HGB 11.3 g/dL (12.0-15.0); Lymphocytes # (A) 0.79 10*3/uL (0.90-5.00); Lymphocytes % (A) 24.2 %; MCH 25.7 pg (27.0-32.0); MCHC 32.3 g/dL (32.0-37.0); MCV 79.7 fL (80.0-97.0); Mean Platelet Volume 10.5 fL (9.5-12.2); Monocytes # (A) 0.55 10*3/uL (0.20-1.00); Monocytes % (A) 16.9 %; Neutrophils # (A) 1.88 10*3/uL (1.80-7.70); Neutrophils % (A) 57.7 %; Platelet Count 221 10*3/uL (140-440); RBC 4.39 10*6/uL (4.10-5.20); RDW 12.4 % (11.5-14.5); WBC 3.26 10*3/uL (4.50-10.00)
[2024-06-19 21:22] LABS: Appearance,Urine Clear (Clear); Bacteria,Urine Rare /hpf; Bilirubin,Urine Negative (Negative); Blood,Urine Large (Negative); Color,Urine Colorless; Glucose,Urine (UA) Negative (Negative); Ketones,Urine Negative (Negative); Leukocyte Esterase,Urine Negative (Negative); Mucus,Urine Rare /hpf; Nitrite,Urine Negative (Negative); PH, Urine 5.5 (5.0-8.0); Protein,Urine Negative (Negative); RBC,Urine 2 /hpf (0-5); Specific Gravity,Urine 1.006 (1.001-1.035); Squamous Epithelial Cell,Urine 1 /hpf (0-4); Urobilinogen,Urine <2.0 mg/dL (<2.0); WBC,Urine 1 /hpf (0-5)
[2024-06-19 21:29] LABS: ALT 43 U/L (4-34); AST 36 U/L (14-36); African American GFR (CKD) >90 (>60 ml/min/1.73 sqM); Albumin 4.5 g/dL (3.5-5.0); Alkaline Phosphatase 47 U/L (38-126); Anion Gap 28 mmol/L; Blood Urea Nitrogen 10 mg/dL (7-17); Calcium 9.5 mg/dL (8.4-10.2); Carbon Dioxide 23 mmol/L (22-30); Chloride 101 mmol/L (98-107); Glucose 103 mg/dL (74-99); Non-African American GFR(CKD) >90 (>60 ml/min/1.73 sqM); Potassium 3.1 mmol/L (3.5-5.1); Sodium 152 mmol/L (137-145); Total Bilirubin 0.2 mg/dL (0.2-1.3); Total Protein 7.3 g/dL (6.3-8.2)
[2024-06-19 21:45] LABS: HCG,Quantitative Serum 8347.9 mIU/mL
--- NOTE | 2024-06-19 22:42 | US ---
EXAMINATION TYPE: Transabdominal DATE OF EXAM: 06/19/2024 10:32 PM COMPARISON: NONE CLINICAL INDICATION: Female, 24 years old with history of 7 weeks, bleeding, cramping; TECHNIQUE: with grayscale and color Doppler imaging including first trimester . FINDINGS: EXAM MEASUREMENTS: GESTATIONAL AGE / DATING Physician Established: Not yet established Dates by LMP: (7 weeks/0 days) EDC: 02/05/2025 Dates by First Scan: No previous this is first scan ( weeks/ days) EDC: Dates by Current Scan for: By gestational sac measurement (5 weeks/6 days) EDC: 02/13/2025 MATERNAL ANATOMY Uterus: 7.0 x 4.5 x 5.1cm Right Ovary: 2.9 x 1.9 x 2.3cm Left Ovary: 2.8 x 1.9 x 1.9cm Post CDS / Adnexa: wnl Presence of free fluid: no Presence of corpus luteal cyst: not seen Presence of subchorionic bleed: no GESTATION / SURVEY Gestational Sac MSD: 1.1cm (5 weeks/6 days) No yolk sac or pole seen at this time Date of LMP: 05/01/2024 Beta HcG (if available): 8,347.9 IMPRESSION: 1. There may be a single intrauterine gestational sac estimated at 5 weeks 6 days gestation based on the mean sac diameter. Yolk sac and pole not identified at this time. No cardiac activity ident ified. Differential diagnosis would include blighted ovum. Follow-up imaging and correlation with ser ial beta-hCG is recommended. [facility], , 06/19/2024 10:40 PM
[2024-06-20 00:23] LABS: African American GFR (CKD) >90 (>60 ml/min/1.73 sqM); Anion Gap 7 mmol/L; Blood Urea Nitrogen 9 mg/dL (7-17); Calcium 7.6 mg/dL (8.4-10.2); Carbon Dioxide 22 mmol/L (22-30); Chloride 108 mmol/L (98-107); Glucose 82 mg/dL (74-99); Non-African American GFR(CKD) >90 (>60 ml/min/1.73 sqM); Potassium 2.8 mmol/L (3.5-5.1); Sodium 137 mmol/L (137-145)
[2024-06-20 00:45] VITALS: BP 127/86; PULSE 87; TEMP 99.1
== END 2024-06-20 00:46 | disposition home or self-care (01) ==
LOC: EC 20:28
DX: O20.0 Threatened abortion (principal); Z88.0 Allergy status to penicillin; Z91.040 Latex allergy status; Z3A.01 Less than 8 weeks gestation of pregnancy
CPT/HCPCS: 36415; 76801; 80048; 80053; 81001; 84702; 85025; 86850; 86900; 86901; 99284

== ENCOUNTER 2024-06-21 10:24 | Emergency (ER) | payer BC ==
[2024-06-21 11:10] VITALS: RESP 18
[2024-06-21 11:14] LABS: Basophils # (A) 0.01 10*3/uL (0.00-0.10); Basophils % (A) 0.4 %; Eosinophils # (A) 0.04 10*3/uL (0.04-0.35); Eosinophils % (A) 1.5 %; HCT 35.6 % (37.2-46.3); HGB 11.5 g/dL (12.0-15.0); Lymphocytes # (A) 0.95 10*3/uL (0.90-5.00); Lymphocytes % (A) 35.6 %; MCH 25.7 pg (27.0-32.0); MCHC 32.3 g/dL (32.0-37.0); MCV 79.5 fL (80.0-97.0); Mean Platelet Volume 10.6 fL (9.5-12.2); Neutrophils # (A) 1.27 10*3/uL (1.80-7.70); Neutrophils % (A) 47.5 %; Platelet Count 199 10*3/uL (140-440); RBC 4.48 10*6/uL (4.10-5.20); RDW 12.5 % (11.5-14.5); WBC 2.67 10*3/uL (4.50-10.00)
--- NOTE | 2024-06-21 11:25 | ED ---
Female Urogenital HPI - General Chief complaint: Vaginal Bleeding Stated complaint: Vaginal Bleeding(7 Weeks Preg) Time Seen by Provider: 06/21/24 10:30 Source: patient, RN notes reviewed Mode of arrival: ambulatory Limitations: no limitations - History of Present Illness Initial comments: This is a 24-year-old female who presents to the emergency department for vaginal bleeding in . Patient is approximately 7 weeks and . She was evaluated here for this a couple of days ago and they are concerned about a threatened miscarriage. States that today the bleeding got more significant and she contacted her [facility] who advised she come here for repeat blood work. States that she is fairly certain she is having a miscarriage at this point. Denies any abdominal pain, nausea, or vomiting. MD Complaint: vaginal bleeding - Related Data Home Medications Medication Instructions Recorded Confirmed Ferrous Sulfate [Iron] 325 mg PO DAILY 12/09/22 12/09/22 Vit No.179/Iron/Folic 1 each PO DAILY 12/09/22 12/09/22 [ Tablet] Previous Rx's Medication Instructions Recorded Ferrous Sulfate [Iron (65 MG 325 mg PO BID-W/MEALS #60 tab 12/13/22 Elemental)] Ibuprofen [Motrin] 600 mg PO Q6H #40 tab 12/13/22 oxyCODONE HCL [OxyIR] 5 mg PO Q4HR PRN #18 tab 12/13/22 Allergies Allergy/AdvReac Type Severity Reaction Status Date / Time latex Allergy Rash/Hives Verified 06/21/24 10:29 Penicillins Allergy Rash/Hives Verified 06/21/24 10:29 Review of Systems ROS Statement: Those systems with pertinent positive or pertinent negative responses have been documented in the HPI. ROS Other: All systems not noted in ROS Statement are negative. Past Medical History Past Medical History: No Reported History History of Any Multi-Drug Resistant Organisms: None Reported Past Surgical History: Orthopedic Surgery Additional Past Surgical History / Comment(s): LEFT ANKLE SURGERY Past Psychological History: No Psychological Hx Reported Smoking Status: Never smoker Past Alcohol Use History: None Reported Past Drug Use History: None Reported - Past Family History Father History Unknown: Yes Additional Family Medical History / Comment(s): DAD HAS HYPERCARDIOMYATHIA General Exam Limitations: no limitations General appearance: alert, in no apparent distress Head exam: Present: atraumatic, normocephalic, normal inspection Respiratory exam: Present: normal lung sounds bilaterally. Absent: respiratory distress, wheezes, rales, rhonchi, stridor Cardiovascular Exam: Present: regular rate, normal rhythm Neurological exam: Present: alert, oriented X3, CN II-XII intact Psychiatric exam: Present: normal affect, normal mood Skin exam: Present: warm, dry, intact, normal color. Absent: rash Course Vital Signs 06/21/24 06/21/24 06/21/24 10:25 11:09 12:40 Temperature 98.3 F 98.1 F Pulse Rate 95 90 93 Respiratory 16 18 18 Rate Blood Pressure 118/84 128/78 114/71 O2 Sat by Pulse 100 99 99 Oximetry Medical Decision Making - Medical Decision Making This is a 24-year-old female who presents to the emergency department for vaginal bleeding in . Was pt. sent in by a medical professional or institution? @ -No Did you speak to anyone other than the patient for history? @ -No Did you review nursing and triage notes? @ -Yes, and I agree, it is accurate with regards to the patient's symptoms. Were old charts reviewed? @ -Beta-hCG from 06/19 which was 8347.9. Obstetrics ultrasound from 06/19/2024 demonstrating a possible single intrauterine gestational sac without yolk sac or pole. They advised a differential diagnosis of a blighted ovum. Differential Diagnosis? @ -Differential Vaginal Bleeding: Spontaneous , threatened , molar , ectopic , incompetent cervix, placenta previa, uterine rupture, dysfunctional uterine bleeding, hemorrhage, uterine fibroids, malignancy, coagulopathy, PID, cervicitis, adenomyosis, vaginal trauma, this is not meant to be an all- inclusive list. EKG interpreted by me (3pts min.)? @ -Not obtained X-rays interpreted by me (1pt min.)? @ -Not obtained CT interpreted by me (1pt min.)? @ -Not obtained U/S interpreted by me (1pt. min.)? @ -Not obtained What testing was considered but not performed? (CT, X-rays, U/S, labs)? Why? @ -None What meds were considered but not given? Why? @ -None Did you discuss the management of the patient with other professionals? @ -No Did you reconcile home meds? @ -No Was smoking cessation discussed for >3mins.? @ -No Was critical care preformed (if so, how long)? @ -No Were there social determinants of health that impacted care today? How? (H omelessness, low income, unemployed, alcoholism, drug addiction, transportation, low edu. Level, literacy, decrease access to med. care, longterm, rehab)? @ -No Was there de-escalation of care discussed even if they declined? (Discuss DNR or withdrawal of care, Hospice)? @ -No What co-morbidities impacted this encounter? (DM, HTN, Smoking, COPD, CAD, Cancer, CVA, Hep., AIDS, mental health diagnosis, sleep apnea, morbid obesity)? @ - Was patient admitted / discharged? @ -Discharged. Lab work demonstrates a beta-hCG of 5982.1. 2 days ago this was 8347.9. Obstetrics ultrasound from 2 days ago revealed a possible intrauterine gestational sac without a yolk sac or pole and they advised the likelihood of a blighted ovum. Based on this finding with decreasing hCG, advised that this is likely an incomplete miscarriage, which the patient was expecting. Lab order provided to have her hCG count repeated in the next 48 hours. Advised she also follow-up with [facility] to continue having serial hCGs and further monitoring. Patient discharged home in stable condition. Case discussed with ED attending Dr. Rosas. Return precautions reviewed in depth, the patient is instructed to return to the emergency department with any new, worsening, or concerning symptoms. Patient verbalized understanding. Undiagnosed new problem with uncertain prognosis? @ -None Drug Therapy requiring intensive monitoring for toxicity (Heparin, Nitro, Insulin, Cardizem)? @ -None Were any procedures done? @ -None Diagnosis/symptom? @ -Incomplete miscarriage Acute, or Chronic, or Acute on Chronic? @ -Acute Uncomplicated (without systemic symptoms) or Complicated (systemic symptoms)? @ -Uncomplicated Side effects of treatment? @ -None Exacerbation, Progression, or Severe Exacerbation] @ -Not applicable Poses a threat to life or bodily function? @ -No - Lab Data Result diagrams: 06/21/24 11:06 06/21/24 11:06 Lab Results 06/21/24 06/21/24 Range/Units 11:06 11:06 WBC 2.67 L (4.50-10.00) 10*3/uL RBC 4.48 (4.10-5.20) 10*6/uL Hgb 11.5 L (12.0-15.0) g/dL Hct 35.6 L (37.2-46.3) % MCV 79.5 L (80.0-97.0) fL MCH 25.7 L (27.0-32.0) pg MCHC 32.3 (32.0-37.0) g/dL Plt Count 199 (140-440) 10*3/uL MPV 10.6 (9.5-12.2) fL Immature Gran % (Auto) 0 % Neutrophils % 47.5 % Lymphocytes % 35.6 % Monocytes % 15.0 % Eosinophils % 1.5 % Basophils % 0.4 % Immature Gran # 0.00 (0.00-0.04) 10*3/uL Neutrophils # 1.27 L (1.80-7.70) 10*3/uL Lymphocytes # 0.95 (0.90-5.00) 10*3/uL Monocytes # 0.40 (0.20-1.00) 10*3/uL Eosinophils # 0.04 (0.04-0.35) 10*3/uL Basophils # 0.01 (0.00-0.10) 10*3/uL Manual Slide Review Performed Spherocytes Present Sodium 140 (137-145) mmol/L Potassium 3.6 (3.5-5.1) mmol/L Chloride 104 (98-107) mmol/L Carbon Dioxide 24 (22-30) mmol/L Anion Gap 12 mmol/L BUN 13 (7-17) mg/dL Creatinine 0.65 (0.52-1.04) mg/dL Est GFR (CKD-EPI)AfAm >90 (>60 ml/min/1.73 sqM) Est GFR (CKD-EPI)NonAf >90 (>60 ml/min/1.73 sqM) Glucose 91 (74-99) mg/dL Calcium 9.5 (8.4-10.2) mg/dL Total Bilirubin 0.3 (0.2-1.3) mg/dL AST 34 (14-36) U/L ALT 37 H (4-34) U/L Alkaline Phosphatase 45 (38-126) U/L Total Protein 7.1 (6.3-8.2) g/dL Albumin 4.2 (3.5-5.0) g/dL HCG, Quant 5982.1 mIU/mL Disposition Clinical Impression: Incomplete miscarriage Disposition: HOME SELF-CARE Instructions (If sedation given, give patient instructions): Miscarriage (ED) Additional Instructions: Return to the emergency department with any new, worsening, or concerning sympto ms. Take the lab slip with you to have your hCG count repeated in 48 hours. Your current level is 5982. You can contact [facility] or the [facility] you are currently communicating with and see if one of them will schedule you for a follow-up appointment to continue trending your hCG levels. Is patient prescribed a controlled substance at d/c from ED?: No Referrals: Scott Combs MD [Primary Care Provider] - 1-2 days Time of Disposition: 12:24
[2024-06-21 11:57] LABS: ALT 37 U/L (4-34); AST 34 U/L (14-36); African American GFR (CKD) >90 (>60 ml/min/1.73 sqM); Albumin 4.2 g/dL (3.5-5.0); Anion Gap 12 mmol/L; Blood Urea Nitrogen 13 mg/dL (7-17); Calcium 9.5 mg/dL (8.4-10.2); Carbon Dioxide 24 mmol/L (22-30); Chloride 104 mmol/L (98-107); Glucose 91 mg/dL (74-99); Non-African American GFR(CKD) >90 (>60 ml/min/1.73 sqM); Potassium 3.6 mmol/L (3.5-5.1); Sodium 140 mmol/L (137-145); Total Bilirubin 0.3 mg/dL (0.2-1.3); Total Protein 7.1 g/dL (6.3-8.2)
[2024-06-21 11:58] LABS: Alkaline Phosphatase 45 U/L (38-126)
[2024-06-21 12:12] LABS: HCG,Quantitative Serum 5982.1 mIU/mL
[2024-06-21 12:47] VITALS: BP 114/71; PULSE 93; TEMP 98.1
[2024-06-21 13:19] LABS: Spherocytes Present
== END 2024-06-21 12:42 | disposition home or self-care (01) ==
LOC: EC 10:24
DX: O03.4 Incomplete spontaneous abortion without complication (principal); Z88.0 Allergy status to penicillin; Z91.040 Latex allergy status
CPT/HCPCS: 36415; 80053; 84702; 85025; 99284